=== PATIENT | male | born 1950 | race Caucasian/White ===

== ENCOUNTER → 2017-09-03 08:25 | Outpatient (CLI) | payer OTHER ==
[~2017-09-03 08:25] MED LIST: ASA81 MG; GLUCOPHAGE XR500 MG; LIPITOR20 MG; NORVASC10 MG
== END | disposition home or self-care (01) ==
LOC: RAD 08:25 → LAB 08:25
DX: N18.3 Chronic kidney disease, stage 3 (moderate) (principal); E11.9 Type 2 diabetes mellitus without complications; R42 Dizziness and giddiness; Z12.5 Encounter for screening for malignant neoplasm of prostate; Z12.11 Encounter for screening for malignant neoplasm of colon

== ENCOUNTER → 2017-09-05 06:20 | Outpatient (CLI) | payer OTHER | END | disposition home or self-care (01) | LOC: LAB 06:20 | DX: N18.3 Chronic kidney disease, stage 3 (moderate) (principal); E11.9 Type 2 diabetes mellitus without complications; R42 Dizziness and giddiness; Z12.5 Encounter for screening for malignant neoplasm of prostate; Z12.11 Encounter for screening for malignant neoplasm of colon ==

== ENCOUNTER 2017-09-05 07:30 | Outpatient (CLI) | payer OTHER | END 2017-09-05 07:42 | disposition home or self-care (01) | LOC: SONOGRAMA 07:30 | DX: N18.3 Chronic kidney disease, stage 3 (moderate) (principal); E11.9 Type 2 diabetes mellitus without complications; R42 Dizziness and giddiness; Z12.5 Encounter for screening for malignant neoplasm of prostate; Z12.11 Encounter for screening for malignant neoplasm of colon ==

== ENCOUNTER → 2017-09-07 09:59 | Outpatient (CLI) | payer OTHER | END | disposition home or self-care (01) | LOC: LAB 09:59 | DX: N18.3 Chronic kidney disease, stage 3 (moderate) (principal); R42 Dizziness and giddiness; Z12.5 Encounter for screening for malignant neoplasm of prostate; Z12.11 Encounter for screening for malignant neoplasm of colon ==

== ENCOUNTER 2018-02-27 06:37 | Outpatient (CLI) | payer OTHER | END 2018-02-27 06:50 | disposition home or self-care (01) | LOC: LAB 06:37 | DX: Z76.0 Encounter for issue of repeat prescription (principal); I10 Essential (primary) hypertension ==

== ENCOUNTER 2018-03-01 06:43 | Outpatient (CLI) | payer OTHER | END 2018-03-01 06:56 | disposition home or self-care (01) | LOC: LAB 06:43 | DX: Z76.0 Encounter for issue of repeat prescription (principal); E11.9 Type 2 diabetes mellitus without complications; I10 Essential (primary) hypertension ==

== ENCOUNTER → 2018-10-11 | Outpatient (CLI) | payer OTHER | END | disposition home or self-care (01) | LOC: LAB 06:57 | DX: D64.89 Other specified anemias (principal); E11.29 Type 2 diabetes mellitus with other diabetic kidney complication; Z12.5 Encounter for screening for malignant neoplasm of prostate; Z12.11 Encounter for screening for malignant neoplasm of colon; Z76.0 Encounter for issue of repeat prescription ==

== ENCOUNTER 2018-10-13 06:13 | Outpatient (CLI) | payer OTHER | END 2018-10-13 06:20 | disposition home or self-care (01) | LOC: LAB 06:13 | DX: D64.89 Other specified anemias (principal); E11.8 Type 2 diabetes mellitus with unspecified complications; Z76.0 Encounter for issue of repeat prescription; E11.29 Type 2 diabetes mellitus with other diabetic kidney complication; Z12.5 Encounter for screening for malignant neoplasm of prostate; Z12.11 Encounter for screening for malignant neoplasm of colon ==

== ENCOUNTER → 2019-03-21 06:23 | Outpatient (CLI) | payer OTHER | END | disposition home or self-care (01) | LOC: LAB 06:23 | DX: M79.672 Pain in left foot (principal); M79.671 Pain in right foot; M10.49 Other secondary gout, multiple sites; R22.42 Localized swelling, mass and lump, left lower limb; E11.69 Type 2 diabetes mellitus with other specified complication ==

== ENCOUNTER 2019-03-23 07:09 | Outpatient (CLI) | payer OTHER | END 2019-03-23 07:25 | disposition home or self-care (01) | LOC: LAB 07:09 | DX: M79.672 Pain in left foot (principal); M79.671 Pain in right foot; M10.9 Gout, unspecified; R22.42 Localized swelling, mass and lump, left lower limb; E11.9 Type 2 diabetes mellitus without complications ==

== ENCOUNTER 2019-03-30 07:11 | Outpatient (CLI) | payer OTHER | END 2019-03-30 07:26 | disposition home or self-care (01) | LOC: TOM 07:11 | DX: R06.02 Shortness of breath (principal) ==

== ENCOUNTER 2020-04-14 06:38 | Outpatient (CLI) | payer OTHER | END 2020-04-14 07:24 | disposition home or self-care (01) | LOC: LAB 06:38 | PROVIDERS: ATTEND General Practice | DX: N18.1 Chronic kidney disease, stage 1 (principal); Z12.5 Encounter for screening for malignant neoplasm of prostate; Z12.11 Encounter for screening for malignant neoplasm of colon; E11.9 Type 2 diabetes mellitus without complications ==

== ENCOUNTER 2020-04-16 06:48 | Outpatient (CLI) | payer OTHER | END 2020-04-16 07:07 | disposition home or self-care (01) | LOC: LAB 06:48 | PROVIDERS: ATTEND General Practice | DX: E11.9 Type 2 diabetes mellitus without complications (principal); N18.1 Chronic kidney disease, stage 1; Z12.5 Encounter for screening for malignant neoplasm of prostate; Z12.11 Encounter for screening for malignant neoplasm of colon ==

== ENCOUNTER → 2021-03-19 08:02 | Outpatient (CLI) | payer OTHER | END | disposition home or self-care (01) | LOC: LAB 08:02 | PROVIDERS: ATTEND General Practice | DX: E11.8 Type 2 diabetes mellitus with unspecified complications (principal); Z13.89 Encounter for screening for other disorder; Z13.220 Encounter for screening for lipoid disorders; Z12.11 Encounter for screening for malignant neoplasm of colon; Z12.5 Encounter for screening for malignant neoplasm of prostate; Z11.3 Encounter for screening for infections with a predominantly sexual mode of transmission ==

== ENCOUNTER → 2021-03-23 07:08 | Outpatient (CLI) | payer OTHER | END | disposition home or self-care (01) | LOC: LAB 07:08 | PROVIDERS: ATTEND General Practice | DX: E11.8 Type 2 diabetes mellitus with unspecified complications (principal); Z76.0 Encounter for issue of repeat prescription; Z13.89 Encounter for screening for other disorder; Z13.220 Encounter for screening for lipoid disorders; Z12.11 Encounter for screening for malignant neoplasm of colon; Z12.5 Encounter for screening for malignant neoplasm of prostate; Z11.3 Encounter for screening for infections with a predominantly sexual mode of transmission; E11.9 Type 2 diabetes mellitus without complications ==

== ENCOUNTER → 2021-03-24 07:58 | Outpatient (CLI) | payer OTHER | END | disposition home or self-care (01) | LOC: LAB 07:58 | PROVIDERS: ATTEND General Practice | DX: D64.89 Other specified anemias (principal); R94.4 Abnormal results of kidney function studies; E11.9 Type 2 diabetes mellitus without complications ==